=== PATIENT | male | born 1960 | race American Indian/Alaskan Native ===

== ENCOUNTER 2017-09-01 08:02 | Outpatient (CLI) | payer MEDICARE, OTHER ==
--- NOTE | 2017-09-01 08:29 | XRay Report ---
Right shoulder 3 views: History: Right shoulder pain. Findings: There is moderate to severe arthritic changes noted at the glenohumeral joint and the a.c. joint. There is suspicion of old fracture distal clavicle at the subarticular region of the clavicle at a.c. joint. There is cortical irregularity and defect identified at the distal acromion probably related to chronic impingement since in the adjacent humeral head greater tuberosity reveals cortical irregularity . No soft tissue calcification. 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
== END 2017-09-01 08:03 | disposition home or self-care (01) ==
LOC: SPVIMAG 08:02
PROVIDERS: ATTEND Orthopaedic Surgery
DX: M19.011 Primary osteoarthritis, right shoulder (principal)